=== PATIENT | female | born 1985 | race Caucasian/White ===

== ENCOUNTER 2017-08-23 16:25 | Emergency (ER) | payer OTHER, SELFPAY ==
[2017-08-23 17:01] LABS: Urine Blood 3+ (NEG); Urine Glucose NEGATIVE (NEG); Urine Protein 1+ (NEG); Urine Specific Gravity >1.030 (1.005-1.030)
[2017-08-23 17:04] LABS: Urine Bacteria 20-50 /HPF (<20); Urine Culture Reflex Order REFLEXED
[2017-08-23 18:08] LABS: Absolute Lymphocytes (CBC) 1.8 K/uL (0.7-4.9); Absolute Monocytes 0.9 K/uL (0.1-1.3); Absolute Neutrophil 7.1 K/uL (1.8-8.0); Basophils % 0.5 % (0-1.3); Eosinophils % 0.9 % (0-4.4); Hematocrit 40.2 % (36.0-45.0); MCH 29.8 pg (27.0-35.0); MCV 89.3 fL (80-100); Monocytes % 8.8 % (3.3-12.3)
[2017-08-23 18:19] LABS: Bicarbonate 26 mEq/L (21-31); Glucose Level 98 mg/dL (65-120); Lipase 20 U/L (22-51); Potassium 3.7 mEq/L (3.6-5.0); Sodium Level 136 mEq/L (135-145)
[2017-08-23 18:25] LABS: ALT/SGPT 13 IU/L (10-60); AST/SGOT 17 IU/L (10-42); Albumin 4.1 g/dL (3.2-5.5); Alkaline Phosphatase 71 IU/L (42-121); BUN Blood Urea Nitrogen 10 mg/dL (6-20); Bilirubin Direct 0.1 mg/dL (0-0.2); Bilirubin Total 0.9 mg/dL (0.3-1.2); Protein, Total 7.9 g/dL (6.0-8.3)
[2017-08-23] MEDS ORDERED: IBUPROFEN 200 MG TAB PO ONE (18:33)
[2017-08-23] MEDS ORDERED: IBUPROFEN 400 MG TAB ONE (18:34)
--- NOTE | 2017-08-23 19:57 | ER ---
Nurse's Notes [facility] Name: Selina Vaughan Age: 31 yrs Sex: Female : 1985 Arrival Date: 08/23/2017 Time: 16:28 Bed 17 Private MD: Diagnosis: Abnormal uterine and vaginal bleeding, unspecified;Urinary tract infection, site not specified Presentation: 08/23 16:31 Presenting complaint: Patient states: "I started my period this morning and it is very lk1 heavy.". Transition of care: patient was not received from another setting of care. Onset of symptoms was August 23, 2017 at 09:00. Care prior to arrival: None. 16:31 Method Of Arrival: Ambulatory lk1 16:31 Acuity: ABDIRAHMAN 4 lk1 Triage Assessment: 16:33 General: Appears in no apparent distress. Behavior is calm, cooperative, appropriate lk1 for age. Pain: Complains of pain in suprapubic area Pain currently is 10 out of 10 on a pain scale. : Reports vaginal bleeding that is heavy flow. COOPERATIVE EDUCATION COORDINATOR: 16:33 LMP 08/23/2017 lk1 Historical: - Allergies: 16:33 No Known Allergies; lk1 - PMHx: 16:33 Headaches; lk1 - PSHx: 16:33 Tubal ligation; left wrist; lk1 - Immunization history:: Adult Immunizations up to date. - Social history:: Smoking status: Patient uses tobacco products, denies chronic smoking, but will smoke occasionally. Screenin:00 Abuse screen: Denies threats or abuse. Nutritional screening: No deficits noted. em Tuberculosis screening: No symptoms or risk factors identified. Fall Risk None identified. Assessment: 17:47 General: Appears in no apparent distress. comfortable, Behavior is calm, cooperative. em Pain: Complains of pain in suprapubic area Pain currently is 8 out of 10 on a pain scale. Quality of pain is described as crampy, Pain began 1 day ago. Neuro: Level of Consciousness is awake, alert, obeys commands, Oriented to person, place, time, situation. Cardiovascular: Capillary refill < 3 seconds Patient's skin is warm and dry. Respiratory: Airway is patent Respiratory effort is even, unlabored, Respiratory pattern is regular, symmetrical. GI: Abdomen is Bowel sounds present X 4 quads. Reports nausea. : Urine is clear, Reports cramping, Denies burning with urination. : Denies burning with urination. EENT: No deficits noted. Derm: Skin is intact, Skin is pink, warm \\T\\ dry. Musculoskeletal: Range of motion: intact in all extremities. 17:55 General: The previous assessment is accurate, call light remains within reach. . ss 18:37 Reassessment: Patient appears in no apparent distress at this time. Patient and/or em family updated on plan of care and expected duration. Pain level reassessed. Patient is alert, oriented x 3, equal unlabored respirations, skin warm/dry/pink. 19:00 Reassessment: RECD REPORT FROM JUANJOSE LY. 31YO WF P/W PELVIC CRAMPING AND VAGINAL bp BLEEDING. ALL CURRENT ORDERS COMPLETED, DISPO PENDING. 20:14 Reassessment: PT D/C HOME AMBULATORY WITH FAMILY, DX WITH UTI. bp Vital Signs: 16:33 BP 118 / 84; Pulse 95; Resp 16; Temp 97.8(TE); Pulse Ox 100% on R/A; Weight 68.04 kg lk1 (R); Height 5 ft. 5 in. (165.10 cm) (R); Pain 10/10; 18:32 BP 123 / 71; Pulse 90; Resp 18; Pulse Ox 98% on R/A; Pain 8/10; em 19:00 BP 107 / 73; Pulse 88; Resp 14; Pulse Ox 99% ; bp 19:57 BP 112 / 74; Pulse 90; Resp 15; Pulse Ox 99% on R/A; mt 16:33 Body Mass Index 24.96 (68.04 kg, 165.10 cm) lk1 ED Course: 16:28 Patient arrived in ED. as 16:32 Triage completed. lk1 16:35 Arm band placed on. lk1 16:35 Arm band placed on right wrist. lk1 17:22 Leonel Beard NP is PHCP. pm1 17:22 Jefe Mosley MD is Attending Physician. pm1 17:23 Juanjose Whitlock LVN is Primary Nurse. em 17:45 Patient has correct armband on for positive identification. Bed in low position. Call em light in reach. Side rails up X2. 18:00 No provider procedures requiring assistance completed. Initial lab(s) drawn, by me, em sent to lab. Inserted saline lock: 22 gauge in left wrist, using aseptic technique. Blood collected. 19:53 Urine Culture Sent. bp 19:58 Alex Rizvi MD is Referral Physician. pm1 20:14 IV discontinued, intact, bleeding controlled, No redness/swelling at site. Pressure bp dressing applied. Administered Medications: 18:15 Drug: Ibuprofen 600 mg Route: PO; em 19:53 Follow up: Response: No adverse reaction bp 20:01 Drug: Rocephin 1 grams Route: IV; Rate: calculated rate; Site: left hand; bp 20:01 Follow up: IV Status: Completed infusion bp 20:08 Drug: morphine 4 mg Route: IVP; Site: left hand; bp 20:08 Follow up: Response: Medication administered at discharge. bp 20:08 Drug: Zofran 4 mg Route: IVP; Site: left hand; bp 20:09 Follow up: Response: Medication administered at discharge. bp Outcome: 19:56 Discharge ordered by MD. pm1 20:15 Discharged to home ambulatory, with family. bp 20:15 Condition: stable 20:15 Discharge instructions given to patient, Instructed on discharge instructions, follow up and referral plans. medication usage, Demonstrated understanding of instructions, follow-up care, medications, Prescriptions given X 1. 20:15 Patient left the ED. bp Addendum: 08/26/2017 07:48 Addendum: Culture Results: Positive urine culture. No further action required. Bacteria i w sensitive to prescribed antibiotic. Signatures: Juanjose Whitlock, HAND ETCHER HELPER HAND ETCHER HELPER Marlena Nova as Flores Flores RN RN Deanne Soriano RN RN Tiffanie Brennan RN RN lk1 Leonel Beard NP COPPER PLATE PRINTER pm1 Candy Krishnamurthy nd Brayden Alfred RN RN bp
--- NOTE | 2017-08-23 19:57 | EDPHYS ---
Physician Documentation [facility] Name: Selina Vaughan Age: 31 yrs Sex: Female : 1985 Arrival Date: 08/23/2017 Time: 16:28 Bed 17 Private MD: ED Physician Jefe Mosley HPI: 08/23 20:00 This 31 yrs old Female presents to ER via Ambulatory with complaints of pm1 Vaginal Bleeding, Pelvic Pain. 20:00 The patient presents with vaginal bleeding that is heavy. Onset: The symptoms/episode pm1 began/occurred today. Modifying factors: The symptoms are alleviated by nothing, the symptoms are aggravated by nothing. Associated signs and symptoms: Pertinent positives: cramping, Pertinent negatives: dysuria, fever, nausea. The patient has not recently seen a physician. Patient reports onset of menstrual cycle today that is heavier than normal. FOOD SERVICES COORDINATOR: 16:33 LMP 08/23/2017 lk1 Historical: - Allergies: 16:33 No Known Allergies; lk1 - PMHx: 16:33 Headaches; lk1 - PSHx: 16:33 Tubal ligation; left wrist; lk1 - Immunization history:: Adult Immunizations up to date. - Social history:: Smoking status: Patient uses tobacco products, denies chronic smoking, but will smoke occasionally. ROS: 20:00 Positive for vaginal bleeding. pm1 20:00 Constitutional: Negative for fever, chills, and weight loss, Eyes: Negative for injury, pain, redness, and discharge, ENT: Negative for injury, pain, and discharge, Neck: Negative for injury, pain, and swelling, Cardiovascular: Negative for chest pain, palpitations, and edema, Respiratory: Negative for shortness of breath, cough, wheezing, and pleuritic chest pain. 20:00 Back: Negative for injury and pain, MS/Extremity: Negative for injury and deformity, Skin: Negative for injury, rash, and discoloration, Neuro: Negative for headache, weakness, numbness, tingling, and seizure. 20:00 Abdomen/GI: Positive for abdominal pain, of the suprapubic area, Negative for nausea, vomiting, and diarrhea. Exam: 20:00 Constitutional: This is a well developed, well nourished patient who is awake, alert, pm1 and in no acute distress. Head/Face: Normocephalic, atraumatic. Eyes: Pupils equal round and reactive to light, extra-ocular motions intact. Lids and lashes normal. Conjunctiva and sclera are non-icteric and not injected. Cornea within normal limits. Periorbital areas with no swelling, redness, or edema. ENT: Nares patent. No nasal discharge, no septal abnormalities noted. Tympanic membranes are normal and external auditory canals are clear. Oropharynx with no redness, swelling, or masses, exudates, or evidence of obstruction, uvula midline. Mucous membranes moist. Neck: Trachea midline, no thyromegaly or masses palpated, and no cervical lymphadenopathy. Supple, full range of motion without nuchal rigidity, or vertebral point tenderness. No Meningismus. Chest/axilla: Normal chest wall appearance and motion. Nontender with no deformity. No lesions are appreciated. Cardiovascular: Regular rate and rhythm with a normal S1 and S2. No gallops, murmurs, or rubs. Normal PMI, no JVD. No pulse deficits. Respiratory: Lungs have equal breath sounds bilaterally, clear to auscultation and percussion. No rales, rhonchi or wheezes noted. No increased work of breathing, no retractions or nasal flaring. Back: No spinal tenderness. No costovertebral tenderness. Full range of motion. Skin: Warm, dry with normal turgor. Normal color with no rashes, no lesions, and no evidence of cellulitis. MS/ Extremity: Pulses equal, no cyanosis. Neurovascular intact. Full, normal range of motion. 20:00 Abdomen/GI: Inspection: abdomen appears normal, Bowel sounds: normal, Palpation: abdomen is soft and non-tender, in all quadrants, mass, is not appreciated, rebound tenderness, is not appreciated. 20:00 Neuro: Orientation: is normal, Motor: is normal, moves all fours. Vital Signs: 16:33 BP 118 / 84; Pulse 95; Resp 16; Temp 97.8(TE); Pulse Ox 100% on R/A; Weight 68.04 kg lk1 (R); Height 5 ft. 5 in. (165.10 cm) (R); Pain 10/10; 18:32 BP 123 / 71; Pulse 90; Resp 18; Pulse Ox 98% on R/A; Pain 8/10; em 19:00 BP 107 / 73; Pulse 88; Resp 14; Pulse Ox 99% ; bp 19:57 BP 112 / 74; Pulse 90; Resp 15; Pulse Ox 99% on R/A; mt 16:33 Body Mass Index 24.96 (68.04 kg, 165.10 cm) lk1 MDM: 17:22 Patient medically screened. pm1 19:55 Data reviewed: vital signs. Data interpreted: Pulse oximetry: on room air is 99 %. pm1 Interpretation: normal. Counseling: I had a detailed discussion with the patient and/or guardian regarding: the historical points, exam findings, and any diagnostic results supporting the discharge/admit diagnosis, lab results, the need for outpatient follow up, an OB/Gyne specialist, to return to the emergency department if symptoms worsen or persist or if there are any questions or concerns that arise at home. 08/23 16:52 Order name: Urine Dipstick--Ancillary (enter results); Complete Time: 17:22 bd 08/23 16:52 Order name: Urine --Ancillary (enter results); Complete Time: 17:22 bd 08/23 16:52 Order name: Urine Microscopic Only; Complete Time: 17:22 bd 08/23 17:06 Order name: Urine Culture EDAR 08/23 17:35 Order name: Basic Metabolic Panel; Complete Time: 18:26 pm1 08/23 17:35 Order name: CBC with Diff; Complete Time: 18:26 pm1 08/23 17:35 Order name: Hepatic Function; Complete Time: 18:26 pm1 08/23 17:35 Order name: Lipase; Complete Time: 18:26 pm1 08/23 17:35 Order name: IV Saline Lock; Complete Time: 18:30 pm1 08/23 17:35 Order name: Labs collected and sent; Complete Time: 18:30 pm1 Administered Medications: 18:15 Drug: Ibuprofen 600 mg Route: PO; em 19:53 Follow up: Response: No adverse reaction bp 20:01 Drug: Rocephin 1 grams Route: IV; Rate: calculated rate; Site: left hand; bp 20:01 Follow up: IV Status: Completed infusion bp 20:08 Drug: morphine 4 mg Route: IVP; Site: left hand; bp 20:08 Follow up: Response: Medication administered at discharge. bp 20:08 Drug: Zofran 4 mg Route: IVP; Site: left hand; bp 20:09 Follow up: Response: Medication administered at discharge. bp Disposition: 08/23/17 19:56 Discharged to Home. Impression: Abnormal uterine and vaginal bleeding, unspecified, Urinary tract infection, site not specified. - Condition is Stable. - Discharge Instructions: Abnormal Uterine Bleeding, Urinary Tract Infection. - Prescriptions for Bactrim DS 800- 160 mg Oral Tablet - take 1 tablet by ORAL route every 12 hours for 10 days; 20 tablet. - Medication Reconciliation Form, Thank You Letter, Antibiotic Education, Work release form form. - Follow up: Emergency Department; When: As needed; Reason: Worsening of condition. Follow up: Private Physician; When: 2 - 3 days; Reason: Recheck today's complaints, Continuance of care, Re-evaluation by your physician. Follow up: Alex Rizvi MD; When: 2 - 3 days; Reason: Recheck today's complaints, Continuance of care, Re-evaluation by your physician. - Problem is new. - Symptoms have improved. - Notes: Take ibuprofen as need for pain Addendum: 08/28/2017 03:03 Co-signature as Attending Physician, Jefe Mosley MD I agree with the assessment and t w4 plan of care. Signatures: Dispatcher [employer] Juanjose Liao, WATER SYSTEM OPERATOR WATER SYSTEM OPERATOR Tiffanie Laird, RN RN lk1 Leonel Beard, WHEEL BRAIDER WHEEL BRAIDER pm1 Brayden Alfred, CITLALLI RN Jefe Cooley MD MD tw4
[2017-08-23] MEDS ORDERED: CEFTRIAXONE/SWI 1gm 1 GM/10 ML SYR ONE (20:16)
[2017-08-23] MEDS ORDERED: MORPHINE 4 MG/ML SYR ONE (20:23)
[2017-08-23] MEDS ORDERED: ONDANSETRON 4 MG/2 ML VIAL ONE (20:23)
== END 2017-08-23 20:15 | disposition home or self-care (01) ==
LOC: ER 16:25
DX: N39.0 Urinary tract infection, site not specified (principal); Z72.0 Tobacco use
CPT/HCPCS: 36415; 80048; 80076; 81003; 81015; 81025; 83690; 85025; 87077; 87086; 87088; 87186; 96374; 96375; 99284; J0696; J2405

== ENCOUNTER 2024-08-12 01:36 | Emergency (ER) | payer SELFPAY ==
[2024-08-12] MEDS ORDERED: NA CHLORIDE 0.9% 1,000 ML ONE ×2 (02:06→04:13)
[2024-08-12] MEDS ORDERED: METOCLOPRAMIDE 10 MG/2mL INJ ONE (02:06)
[2024-08-12] MEDS ORDERED: DIPHENHYDRAMINE 50 MG/ML VIAL ONE (02:06)
[2024-08-12] MEDS ORDERED: DICYCLOMINE HCL 20 MG/2 ML AMP IM ONE (02:06)
[2024-08-12] MEDS ORDERED: FAMOTIDINE 20 MG/2 ML VIAL IV ONE (02:06)
[2024-08-12 03:14] LABS: Absolute Lymphocytes (CBC) 0.5 K/uL (0.7-4.9); Absolute Monocytes 1.1 K/uL (0.1-1.3); Absolute Neutrophil 23.9 K/uL (1.8-8.0); Basophils % 0.2 % (0-1.3); Eosinophils % 0.1 % (0-4.4); Hematocrit 42.8 % (36.0-45.0); Hemoglobin 14.5 g/dL (12.0-15.0); MCH 29.8 pg (27.0-35.0); MCHC 33.8 g/dL (32.0-36.0); MCV 88.1 fL (80-100); MPV 8.5 fL (7.6-11.3); Monocytes % 4.3 % (3.3-12.3); Neutrophils % 93.4 % (41.7-73.7); Nucleated Red Blood Cells % 0.1 % (0-0); Platelets 351 thou/uL (152-406); RBC Red Blood Cell Count 4.86 M/uL (3.86-4.86); Red Cell Distribution Width 14.8 % (12.1-15.2)
[2024-08-12 03:24] LABS: Albumin 3.7 g/dL (3.4-5.0); Albumin/Globulin Ratio 0.7 (1.1-1.8); Bilirubin Total 1.3 mg/dL (0.2-1.0); Globulin 5.3 g/dL (2.3-3.5)
[2024-08-12 03:31] LABS: Influenza A Ag Negative; Influenza B Ag Negative; SARS-CoV-2 Antigen Rapid Res Negative (Negative)
[2024-08-12 05:16] LABS: Blood Morphology Comment NOT SEEN (NOT SEEN); Platelet Estimate ADEQ; White Blood Cell Scan OK (OK)
--- NOTE | 2024-08-12 07:39 | RAD REPORT ---
EXAMINATION: CT ABDOMEN AND PELVIS WITH CONTRAST CLINICAL INDICATION: Female, 38 years old.diarrhea;Nausea / vomiting;Abd pain TECHNIQUE: CT abdomen and pelvis was performed, after the administration of IV contrast, as per [facility] protocol. Axial, sagittal and coronal reconstructions were obtained. One or more of the following dose reduction techniques were used: Automated exposure control, adjustment of the mA and/o r kV according to patient size, and/or iterative reconstruction. Unless otherwise specified, incidental findings do not require dedicated imaging follow-up. [id number]. COMPARISON: No prior exam. FINDINGS: LOWER CHEST: No acute process identified.Normal heart size. UPPER GI: No significant focal abnormality. LIVER: No significant focal abnormality. GALLBLADDER/BILE DUCTS: No biliary ductal dilatation. PANCREAS: No mass, ductal dilation, or dalton-pancreatic fluid. SPLEEN: Unremarkable. ADRENALS: No adrenal masses. KIDNEYS AND URETERS: No hydronephrosis.No suspicious renal mass.No renal calculi identified. ABDOMINAL AORTA AND OTHER VESSELS: Normal caliber aorta and IVC. PERITONEUM: No abnormal free fluid. No free air. LYMPH NODES: No pathologic lymphadenopathy. ABDOMINAL WALL: Unremarkable SMALL BOWEL/COLON: Small bowel has normal course and caliber. No colonic wall thickening or pericolon ic inflammatory changes.Normal appendix. Nonspecific small bowel fluid. URINARY BLADDER: Underdistended but grossly unremarkable. REPRODUCTIVE ORGANS: No pathologic process. MUSCULOSKELETAL: No acute or suspicious osseous abnormality. ADDITIONAL FINDINGS: None. IMPRESSION: No acute findings in the abdomen or pelvis. Nonspecific small bowel fluid could reflect a mild enteri tis. Normal appendix. Electronically signed by: Delfin Escobar MD 08/12/2024 07:34 AM T Due to temporary technical issues with the [employer] reporting system, reports are being little d by the in-house radiologist without review as a courtesy to ensure prompt reporting the interpreting radiologist is fully responsible for the content of the report. Transcribed Date/Time: 08/12/2024 7:38 AM
--- NOTE | 2024-08-12 07:41 | ER ---
Nurse's Notes [facility] Name: Selina Vaughan Age: 38 yrs Sex: Female : 1985 Arrival Date: 08/12/2024 Time: 01:36 Bed 2 Private MD: Diagnosis: Nausea with vomiting, unspecified;Diarrhea, unspecified Presentation: 08/12 01:59 Chief complaint: Patient states: VOMTING AND DIARRHEA WITH UPPER AB PAIN. Coronavirus br2 screen: Client denies travel out of the [place] in the last 14 days. Ebola Screen: Patient denies exposure to infectious person. Initial Sepsis Screen: Does the patient meet any 2 criteria? No. Patient's initial sepsis screen is negative. Does the patient have a suspected source of infection? No. Patient's initial sepsis screen is negative. Risk Assessment: Do you want to hurt yourself or someone else? Patient reports no desire to harm self or others. Onset of symptoms was August 11, 2024 at 20:00. 01:59 Method Of Arrival: Ambulatory br2 01:59 Acuity: ABDIRAHMAN 3 br2 Triage Assessment: 02:01 General: Appears uncomfortable, Behavior is calm, cooperative. Pain: Complains of pain br2 in right upper quadrant and left upper quadrant Pain currently is 10 out of 10 on a pain scale. GI: Reports upper abdominal pain, diarrhea, nausea, vomiting. Historical: - Allergies: 02:01 PENICILLINS; br2 - Home Meds: 02:01 None [Active]; br2 - Immunization history:: Adult Immunizations up to date. - Infectious Disease History:: Denies. - Social history:: Smoking status: Patient/guardian denies using tobacco, Patient uses alcohol, occasionally. Screenin:06 [facility] ED Fall Risk Assessment (Adult) History of falling in the last 3 months, vc1 including since admission No falls in past 3 months (0 pts) Confusion or Disorientation No (0 pts) Intoxicated or Sedated No (0 pts) Impaired Gait No (0 pts) Mobility Assist Device Used No (0 pt) Altered Elimination No (0 pt) Score/Fall Risk Level 0 - 2 = Low Risk Oriented to surroundings, Maintained a safe environment, Educated pt \T\ family on fall prevention, incl call for assistance when getting out of bed, Hourly rounding (assess needs \T\ fall precautionary measures) done. Abuse screen: Denies threats or abuse. Nutritional screening: No deficits noted. Tuberculosis screening: No symptoms or risk factors identified. Assessment: 02:00 General: Appears uncomfortable, Behavior is calm, cooperative. Pain: Complains of pain ha1 in abdomen diffusely Pain currently is 9 out of 10 on a pain scale. Quality of pain is described as crampy, Pain began 1 day ago. Neuro: Level of Consciousness is awake, alert, obeys commands, Oriented to person, place, time, situation. Cardiovascular: Capillary refill < 3 seconds Patient's skin is warm and dry. Respiratory: Airway is patent Respiratory effort is even, unlabored, Respiratory pattern is regular, symmetrical. GI: Abdomen is round non-distended, Reports lower abdominal pain, upper abdominal pain, diarrhea, nausea, vomiting. : No signs and/or symptoms were reported regarding the genitourinary system. Derm: Skin is pale. Musculoskeletal: Circulation, motion, and sensation intact. 02:52 Reassessment: Patient appears in no apparent distress at this time. No changes from vc1 previously documented assessment. Patient and/or family updated on plan of care and expected duration. Pain level reassessed. 03:33 Reassessment: Patient and/or family updated on plan of care and expected duration. Pain ha1 level reassessed. Patient is alert, oriented x 3, equal unlabored respirations, skin warm/dry/pink. Patient denies pain at this time. Patient states feeling better. Patient states symptoms have improved. 04:27 Reassessment: Patient appears in no apparent distress at this time. No changes from vc1 previously documented assessment. Patient and/or family updated on plan of care and expected duration. Pain level reassessed. Patient is alert, oriented x 3, equal unlabored respirations, skin warm/dry/pink. 06:07 Reassessment: Patient appears in no apparent distress at this time. No changes from vc1 previously documented assessment. Patient and/or family updated on plan of care and expected duration. Pain level reassessed. Patient is alert, oriented x 3, equal unlabored respirations, skin warm/dry/pink. Vital Signs: 01:59 BP 109 / 87; Pulse 132; Resp 18; Temp 97.9; Pulse Ox 98% ; Weight 68.04 kg; Height 5 br2 ft. 5 in. ; Pain 10/10; 02:45 BP 119 / 82; Pulse 107; Resp 18; Pulse Ox 99% ; vc1 03:34 BP 122 / 73; Pulse 110; Resp 19 S; Pulse Ox 99% on R/A; ha1 04:28 BP 118 / 84; Pulse 105; Resp 18; Pulse Ox 98% ; vc1 06:00 BP 127 / 68; Pulse 104; Resp 18; Pulse Ox 96% ; vc1 07:59 BP 108 / 66; Pulse 91; Resp 16; Pulse Ox 97% ; bp 01:59 Body Mass Index 24.96 (68.04 kg, 165.1 cm) br2 01:59 Pain Scale: Adult br2 ED Course: 01:38 Patient arrived in ED. jj6 01:40 Asif Rai PA is PHCP. cp 01:41 Asif Xiong MD is Attending Physician. cp 01:59 Summer Truong, CITLALLI is Primary Nurse. br2 02:01 Triage completed. br2 02:01 Arm band placed on. br2 02:05 Patient has correct armband on for positive identification. Bed in low position. Call vc1 light in reach. Pulse ox on. NIBP on. 02:13 Inserted saline lock: 20 gauge in left antecubital area, using aseptic technique. Blood ha1 collected. Flushed with 10 mL NS. 04:15 CT Abd/Pelvis - IV Contrast Only In Process Unspecified. EDMS 07:04 Attending Physician role handed off by Asif Xiong MD sp3 07:04 Buffy Andujar MD is Attending Physician. sp3 07:13 Buffy Andujar MD is Attending Physician. sp3 08:01 No provider procedures requiring assistance completed. IV discontinued, intact, bp bleeding controlled, No redness/swelling at site. Pressure dressing applied. Administered Medications: 02:46 Drug: metoCLOPramide IVP 10 mg IVP once; over 1 to 2 minutes Route: IVP; Site: left vc1 antecubital; 03:20 Follow up: Response: No adverse reaction; Nausea is decreased ha1 02:46 Drug: diphenhydrAMINE IVP 25 mg IVP once Route: IVP; Site: left antecubital; vc1 03:20 Follow up: Response: No adverse reaction; Marked relief of symptoms ha1 02:47 Drug: Famotidine IVP 20 mg IVP once; dilute with 10 mL 0.9% NaCl; give over 2 minutes vc1 Route: IVP; Site: left antecubital; 03:20 Follow up: Response: No adverse reaction; Marked relief of symptoms; Nausea is decreasedha1 02:47 Drug: NS 0.9% IV 1000 ml IV at 1 bolus Per protocol; to be given as a bolus over 60 vc1 minutes Route: IV; Rate: 1 bolus; Site: left antecubital; 07:44 Follow up: IV Status: Completed infusion bp 02:47 Drug: Dicyclomine IM 20 mg IM once Route: IM; Site: left ventrogluteal; vc1 03:20 Follow up: Response: No adverse reaction; Marked relief of symptoms ha1 04:28 Drug: NS 0.9% IV 1000 ml IV at 1000 ml once; to be given as a bolus over 60 minutes ha1 Route: IV; Rate: 1000 ml; Site: left antecubital; 07:44 Follow up: IV Status: Completed infusion bp Medication: 03:06 VIS not applicable for this client. vc1 Outcome: 07:41 Discharge ordered by MD. grimm 08:01 Discharged to home ambulatory, with family, bp 08:01 Condition: stable 08:01 Discharge instructions given to patient, Instructed on discharge instructions, follow up and referral plans. medication usage, Demonstrated understanding of instructions, follow-up care, medications, Prescriptions given X 4, 08:02 Patient left the ED. bp Signatures: Dispatcher [employer] EDMS Asif Rai PA PA cp Peltier, Brian, RN RN bp Buffy Andujar MD MD sp3 Deandra [id number] Yahaira Fishman RN RN vc1 Alexandra Moran RN RN ha1 Summer Truong RN RN br2 Corrections: (The following items were deleted from the chart) 08:01 07:59 BP 108 / 66; Pulse 101bpm; Resp 16bpm; Pulse Ox 97%; bp bp
--- NOTE | 2024-08-12 07:41 | EDPHYS ---
Physician Documentation [facility] Name: Selina Vaughan Age: 38 yrs Sex: Female : 1985 Arrival Date: 08/12/2024 Time: 01:36 Bed 2 Private MD: ED Physician Buffy Andujar HPI: 08/12 01:56 This 38 yrs old Female presents to ER via Unassigned with complaints of cp Nausea/Vomiting/Diarrhea. 01:56 The patient presents to the emergency department with nausea, that is moderate, cp vomiting, that is continuous, diarrhea, that is continuous, abdominal pain, of the right upper quadrant and left upper quadrant. Onset: The symptoms/episode began/occurred yesterday, about 1999. Possible causes: unknown. Associated signs and symptoms: Pertinent positives: abdominal pain, Pertinent negatives: constipation, fever, GI bleeding. Severity of symptoms: in the emergency department the symptoms are unchanged despite home interventions. Historical: - Allergies: 02:01 PENICILLINS; br2 - Home Meds: 02:01 None [Active]; br2 - Immunization history:: Adult Immunizations up to date. - Infectious Disease History:: Denies. - Social history:: Smoking status: Patient/guardian denies using tobacco, Patient uses alcohol, occasionally. ROS: 01:58 ENT: Negative for drainage from ear(s), ear pain, sore throat, difficulty swallowing, cp difficulty handling secretions, 01:58 Respiratory: Negative for cough, shortness of breath, wheezing, 01:58 Abdomen/GI: Positive for abdominal pain, nausea, vomiting, and diarrhea, Negative for hematemesis, black/tarry stool, rectal bleeding, 01:58 Back: Negative for pain at rest, pain with movement, 01:58 : Negative for urinary symptoms, 01:58 Neuro: Negative for altered mental status, headache, Exam: 02:00 Head/Face: Normocephalic, atraumatic. cp 02:00 Constitutional: The patient appears in no acute distress, alert, awake, non-toxic, well developed, well nourished, uncomfortable, 02:00 Eyes: Periorbital structures: appear normal, Conjunctiva: normal, no exudate, no injection, Sclera: no appreciated abnormality, Lids and lashes: appear normal, bilaterally, 02:00 ENT: External ear(s): are unremarkable, Nose: is normal, Mouth: Lips: dry, Oral mucosa: moist, Posterior pharynx: Airway: no evidence of obstruction, patent, 02:00 Neck: ROM/movement: is normal, is supple, without pain, no range of motions limitations, 02:00 Chest/axilla: Inspection: normal, 02:00 Cardiovascular: Rate: tachycardic, Rhythm: regular, cp 02:00 Respiratory: the patient does not display signs of respiratory distress, Respirations: cp normal, no use of accessory muscles, no retractions, labored breathing, is not present, Breath sounds: are clear throughout, no decreased breath sounds, no stridor, no wheezing, 02:00 Abdomen/GI: Inspection: abdomen appears normal, Bowel sounds: active, all quadrants, Palpation: soft, in all quadrants, moderate abdominal tenderness, in the epigastric area, right upper quadrant and left upper quadrant, rebound tenderness, is not appreciated, involuntary guarding, is not appreciated, 02:00 Back: CVA tenderness, is absent, 02:00 Neuro: Orientation: to person, place \T\ time. Mentation: is normal, Motor: moves all fours, strength is normal, Gait: is steady, at a normal pace, Vital Signs: 01:59 BP 109 / 87; Pulse 132; Resp 18; Temp 97.9; Pulse Ox 98% ; Weight 68.04 kg; Height 5 br2 ft. 5 in. ; Pain 10/10; 02:45 BP 119 / 82; Pulse 107; Resp 18; Pulse Ox 99% ; vc1 03:34 BP 122 / 73; Pulse 110; Resp 19 S; Pulse Ox 99% on R/A; ha1 04:28 BP 118 / 84; Pulse 105; Resp 18; Pulse Ox 98% ; vc1 06:00 BP 127 / 68; Pulse 104; Resp 18; Pulse Ox 96% ; vc1 07:59 BP 108 / 66; Pulse 91; Resp 16; Pulse Ox 97% ; bp 01:59 Body Mass Index 24.96 (68.04 kg, 165.1 cm) br2 01:59 Pain Scale: Adult br2 MDM: 02:00 Differential diagnosis: gastritis, cholecystitis, pancreatitis, appendicitis, viral cp gastroenteritis, gastroenteritis. 02:05 Medical Screening Exam initiated pascual 07:40 Data reviewed: vital signs, lab test result(s), radiologic studies. ED course: 25,[address] demonstrates no significant abnormalities. Enteritis noted. We will discharge patient on antibiotics and follow-up to PCP.. 08/12 01:58 Order name: CBC with Diff; Complete Time: 07:17 cp 08/12 03:41 Interpretation: Normal except: WBC 25.60; ROSARIO% 93.4; LYM% 2.0; NEUT A 23.9; LYMA 0.5. cp 08/12 01:58 Order name: CMP; Complete Time: 03:41 cp 08/12 03:42 Interpretation: Normal except: NA 134; GLUC 145; GFR 84; BILIT 1.3; TP 9.0; GLOB 5.3; cp A/G 0.7. 08/12 01:58 Order name: Lipase; Complete Time: 03:41 cp 08/12 01:58 Order name: COVID-19 Ag + Flu A+B Ag; Complete Time: 03:41 cp 08/12 05:17 Order name: CBC Smear Scan; Complete Time: 07:17 EDMS 08/12 03:42 Order name: CT Abd/Pelvis - IV Contrast Only; Complete Time: 07:39 cp 08/12 01:58 Order name: IV Saline Lock; Complete Time: 02:13 cp 08/12 01:58 Order name: Labs collected and sent; Complete Time: 02:47 cp Administered Medications: 02:46 Drug: metoCLOPramide IVP 10 mg IVP once; over 1 to 2 minutes Route: IVP; Site: left vc1 antecubital; 03:20 Follow up: Response: No adverse reaction; Nausea is decreased ha1 02:46 Drug: diphenhydrAMINE IVP 25 mg IVP once Route: IVP; Site: left antecubital; vc1 03:20 Follow up: Response: No adverse reaction; Marked relief of symptoms ha1 02:47 Drug: Famotidine IVP 20 mg IVP once; dilute with 10 mL 0.9% NaCl; give over 2 minutes vc1 Route: IVP; Site: left antecubital; 03:20 Follow up: Response: No adverse reaction; Marked relief of symptoms; Nausea is decreasedha1 02:47 Drug: NS 0.9% IV 1000 ml IV at 1 bolus Per protocol; to be given as a bolus over 60 vc1 minutes Route: IV; Rate: 1 bolus; Site: left antecubital; 07:44 Follow up: IV Status: Completed infusion bp 02:47 Drug: Dicyclomine IM 20 mg IM once Route: IM; Site: left ventrogluteal; vc1 03:20 Follow up: Response: No adverse reaction; Marked relief of symptoms ha1 04:28 Drug: NS 0.9% IV 1000 ml IV at 1000 ml once; to be given as a bolus over 60 minutes ha1 Route: IV; Rate: 1000 ml; Site: left antecubital; 07:44 Follow up: IV Status: Completed infusion bp Disposition: 07:40 I agree with the assessment and plan of care. I reviewed the patient's care provided by sp3 Advanced Practice Provider \T\ agree w/ the diagnosis \T\ care plan. I personally saw the pt \T\ performed a substantive portion of the visit, incldng all aspects of the (History/Exam/Medical Decision Making). Disposition Summary: 08/12/24 07:41 Discharge Ordered Notes: Location: Home sp3 Problem: new sp3 Symptoms: have improved sp3 Condition: Stable sp3 Diagnosis - Nausea with vomiting, unspecified sp3 - Diarrhea, unspecified sp3 Followup: cp - With: Private Physician - When: 2 - 3 days - Reason: Worsening of condition Discharge Instructions: - Discharge Summary Sheet cp - Food Choices to Help Relieve Diarrhea, Adult cp - Diarrhea, Adult cp - Nausea and Vomiting, Adult cp Forms: - Medication Reconciliation Form sp3 - Antibiotic Education sp3 - Prescription Opioid Use sp3 - Patient Portal Instructions sp3 - Leadership Thank You Letter sp3 Prescriptions: - Pepcid 20 mg Oral Tablet - take 1 tablet ORAL route every 12 hours for 10 days; 20 tablet; Refills: 0, cp Product Selection Permitted - ondansetron 8 mg Oral Tablet,disintegrating - take 1 tablet ORAL route every 12 hours; 15 tablet; Refills: 0, Product cp Selection Permitted - Cipro 500 mg Oral tablet - take 1 tablet ORAL route every 12 hours for 7 days; 14 tablet; Refills: 0, sp3 Product Selection Permitted - Flagyl 500 mg Oral tablet - take 1 tablet ORAL route every 8 hours for 7 days; 21 tablet; Refills: 0, sp3 Product Selection Permitted Signatures: Dispatcher [employer] EDAsif Sevilla MD MD cha Page, Corey, PA PA lorena Andujar, Setul, MD MD sp3 Yahaira Fishman, RN RN vc1 Alexandra Moran, RN RN ha1 Summer Truong, RN RN br2 Brayden Alfred RN bp
[2024-08-12 08:19] VITALS: TEMP 97.9
[2024-08-12 08:34] VITALS: BP 108/66; O2SAT 97
== END 2024-08-12 08:02 | disposition home or self-care (01) ==
LOC: ER 01:36
DX: R11.2 Nausea with vomiting, unspecified (principal); R19.7 Diarrhea, unspecified; Z11.52 Encounter for screening for COVID-19
CPT/HCPCS: 36415; 74177; 80053; 83690; 85025; 87428; 96361; 96372; 96374; 96375; 99284; J0500; J1200; J2765; J7030; Q9967

== ENCOUNTER 2024-08-16 11:49 | Emergency (ER) | payer SELFPAY ==
[2024-08-16] MEDS ORDERED: ONDANSETRON 4 MG/2 ML VIAL ONE (13:45)
[2024-08-16] MEDS ORDERED: NA CHLORIDE 0.9% 500 ML ONE (13:45)
[2024-08-16 13:49] LABS: Absolute Eosinophils 0.1 K/uL (0-0.5); Absolute Lymphocytes (CBC) 2.3 K/uL (0.7-4.9); Absolute Monocytes 0.9 K/uL (0.1-1.3); Basophils % 0.6 % (0-1.3); Eosinophils % 1.3 % (0-4.4); Hematocrit 36.2 % (36.0-45.0); Hemoglobin 12.1 g/dL (12.0-15.0); Lymphocytes % 27.3 % (15.3-44.8); MCH 29.5 pg (27.0-35.0); MCHC 33.6 g/dL (32.0-36.0); MCV 87.7 fL (80-100); MPV 7.7 fL (7.6-11.3); Monocytes % 11.2 % (3.3-12.3); Neutrophils % 59.6 % (41.7-73.7); Nucleated Red Blood Cells % 0.1 % (0-0); Platelets 329 thou/uL (152-406); RBC Red Blood Cell Count 4.12 M/uL (3.86-4.86); Red Cell Distribution Width 13.9 % (12.1-15.2)
--- NOTE | 2024-08-16 13:57 | RAD REPORT ---
Procedure: Chest Single View HISTORY: Cough COMPARISON: none FINDINGS: The lungs appear clear of acute infiltrate. No significant pleural effusion noted. The heart is normal size. IMPRESSION: No acute abnormality is displayed.
--- NOTE | 2024-08-16 14:14 | ER ---
Nurse's Notes [facility] Name: Selina Vaughan Age: 38 yrs Sex: Female : 1985 Arrival Date: 08/16/2024 Time: 11:49 Bed 23 Private MD: Diagnosis: Inhalational Injury;Hypokalemia Presentation: 08/16 11:57 Chief complaint: Patient states: Inhaled Isopar E fluid at 8 am. EMERSON, nausea, burning ll1 throat, and alcohol smell in throat started after inhaling. MSDS sheet at EMS states: FELECIA: VSS 20 G L wrist. Coronavirus screen: Client denies travel out of the [place] in the last 14 days. At this time, the client does not indicate any symptoms associated with coronavirus-19. Ebola Screen: Patient denies travel to an Ebola-affected area in the 21 days before illness onset. Initial Sepsis Screen: Does the patient meet any 2 criteria? No. Patient's initial sepsis screen is negative. Does the patient have a suspected source of infection? No. Patient's initial sepsis screen is negative. Risk Assessment: Do you want to hurt yourself or someone else? Patient reports no desire to harm self or others. Onset of symptoms was August 16, 2024. 11:57 Method Of Arrival: EMS: [facility] 1 11:57 Acuity: ABDIRAHMAN 3 ll1 Triage Assessment: 11:59 General: Appears uncomfortable, Behavior is calm, cooperative, appropriate for age. ll1 Pain: Complains of pain in chest Pain currently is 2 out of 10 on a pain scale. Quality of pain is described as aching, dull. EENT: Reports pain when swallowing. Neuro: Reports headache. Cardiovascular: Reports chest pain. GI: Reports nausea. 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 - Infectious Disease History:: Denies. - Social history:: Smoking status: Patient denies any tobacco usage or history of. Screenin:00 [facility] ED Fall Risk Assessment (Adult) History of falling in the last 3 months, me1 including since admission No falls in past 3 months (0 pts) Confusion or Disorientation No (0 pts) Intoxicated or Sedated No (0 pts) Impaired Gait No (0 pts) Mobility Assist Device Used No (0 pt) Altered Elimination No (0 pt) Score/Fall Risk Level 0 - 2 = Low Risk Maintained a safe environment, Provided non-skid footwear, Hourly rounding (assess needs \T\ fall precautionary measures) done. Abuse screen: Denies threats or abuse. Nutritional screening: No deficits noted. Tuberculosis screening: No symptoms or risk factors identified. Assessment: 12:00 General: Appears comfortable, well groomed, well developed, well nourished, Behavior is me1 calm, cooperative, appropriate for age. Pain: Complains of pain in chest Pain does not radiate. Pain currently is 2 out of 10 on a pain scale. Quality of pain is described as aching, dull, Pain began suddenly, Is continuous. Neuro: Level of Consciousness is awake, alert, obeys commands, Oriented to person, place, time, situation, Appropriate for age. Cardiovascular: Reports chest pain, Patient's skin is warm and dry. Respiratory: Respiratory effort is even, unlabored, Respiratory pattern is regular, symmetrical. GI: No signs and/or symptoms were reported involving the gastrointestinal system. : No signs and/or symptoms were reported regarding the genitourinary system. EENT: No signs and/or symptoms were reported regarding the EENT system. Derm: Skin is intact, is healthy with good turgor, Skin is pink, warm \T\ dry. Musculoskeletal: No signs and/or symptoms reported regarding the musculoskeletal system. Vital Signs: 11:57 BP 114 / 64; Pulse 70; Resp 16; Temp 98; Pulse Ox 98% ; Weight 68.04 kg; Height 5 ft. 5 ll1 in. ; Pain 2/10; 12:00 BP 120 / 76; Pulse 70; Resp 18; Pulse Ox 95% ; me1 13:00 BP 119 / 75; Pulse 68; Resp 16; Pulse Ox 99% ; me1 14:40 BP 111 / 75; Pulse 66; Resp 16; Temp 98.5; Pulse Ox 100% ; me1 11:57 Body Mass Index 24.96 (68.04 kg, 165.1 cm) ll1 11:57 Pain Scale: Adult ll1 ED Course: 11:56 Patient arrived in ED. ll1 11:56 Arm band placed on Patient placed in an exam room, on a stretcher. ll1 11:57 Misha Delgado MD is Attending Physician. ec2 11:59 Triage completed. ll1 12:00 Patient has correct armband on for positive identification. Bed in low position. Call me1 light in reach. Side rails up X2. Provided Education on: POC. Verbalized understanding. Client placed on continuous cardiac and pulse oximetry monitoring. NIBP monitoring applied. Pulse ox on. NIBP on. 12:00 No provider procedures requiring assistance completed. me1 12:04 Maintain EMS IV. Gauge \T\ site: 20 G L wrist. ll1 12:07 Sabine Martin, CITLALLI is Primary Nurse. me1 13:36 CXR XRAY In Process Unspecified. EDMS 13:43 CBC with Diff Sent. me1 13:43 BMP Sent. me1 14:44 IV discontinued, intact, bleeding controlled, No redness/swelling at site. Pressure me1 dressing applied. Administered Medications: 13:48 Drug: Ondansetron IVP 4 mg IVP once; over 2 minutes Route: IVP; Site: left wrist; me1 14:17 Follow up: Response: No adverse reaction; Nausea is decreased me1 13:48 Drug: NS 0.9% IV 500 ml 500 ml IV at 1 bolus once; to be given as a bolus over 30 me1 minutes Volume: 500 ml; Route: IV; Rate: 1 bolus; Site: left wrist; 14:39 Follow up: Response: No adverse reaction; IV Status: Completed infusion; IV Intake: me1 500ml 14:39 Drug: Potassium Chloride PO 40 mEq PO once Route: PO; me1 14:39 Follow up: Response: No adverse reaction me1 Medication: 12:00 VIS not applicable for this client. me1 Intake: 14:39 IV: 500ml; Total: 500ml. me1 Outcome: 14:14 Discharge ordered by . ec2 14:44 Discharged to home ambulatory, with friend, me1 14:44 Condition: stable 14:44 Discharge instructions given to patient, Instructed on discharge instructions, follow up and referral plans. medication usage, Demonstrated understanding of instructions, follow-up care, medications, Prescriptions given X 1, 14:46 Patient left the ED. me1 Signatures: Dispatcher [employer] EDPrimitivo Corbett RN RN ll1 Sabine Martin RN RN me1 Misha Delgado MD MD ec2 Corrections: (The following items were deleted from the chart) 14:18 11:57 Chief complaint: Patient states: Inhaled Isopar E fluid at 8 am. EMERSON, nausea, me1 burning throat, and alcohol smell in throat started after inhaling. MSDS sheet at EMS states: FELECIA: VSS 20 G L wrist ll1
--- NOTE | 2024-08-16 14:14 | EDPHYS ---
Physician Documentation [facility] Name: Selina Vaughan Age: 38 yrs Sex: Female : 1985 Arrival Date: 08/16/2024 Time: 11:49 Bed 23 Private MD: ED Physician Misha Delgado HPI: 08/16 13:19 This 38 yrs old Female presents to ER via EMS with complaints of Chemical ec2 Inhalation. 13:19 Patient arrives today due to concern for chemical inhalation. Reports she was exposed ec2 to an irritant, reports that she is having some lightheadedness and dizziness as well as some occasional cough and nausea.. 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 - Infectious Disease History:: Denies. - Social history:: Smoking status: Patient denies any tobacco usage or history of. ROS: 13:19 Constitutional: as per hpi ec2 Exam: 13:19 Constitutional: GEN: NAD Head: atraumatic Eyes: EOMI Ears: External ears are ec2 normal. CV: regular rate LUNGS: no respiratory distress, no wheezes or rales or rhonchi ABD: non-distended SKIN: no evidence of rashes MSK: no evidence of trauma Vital Signs: 11:57 BP 114 / 64; Pulse 70; Resp 16; Temp 98; Pulse Ox 98% ; Weight 68.04 kg; Height 5 ft. 5 ll1 in. ; Pain 2/10; 12:00 BP 120 / 76; Pulse 70; Resp 18; Pulse Ox 95% ; me1 13:00 BP 119 / 75; Pulse 68; Resp 16; Pulse Ox 99% ; me1 14:40 BP 111 / 75; Pulse 66; Resp 16; Temp 98.5; Pulse Ox 100% ; me1 11:57 Body Mass Index 24.96 (68.04 kg, 165.1 cm) ll1 11:57 Pain Scale: Adult ll1 MDM: 13:12 Medical Screening Exam initiated ec2 13:19 Data reviewed: vital signs, nurses notes. ED course: Patient arrives today for ec2 evaluation of possible chemical exposure per examination is well-appearing nontoxic individuals otherwise in no acute distress. Will obtain basic lab work, chest x-ray and treat the patient's dizziness and nausea with crystalloid and antiemetic.. 14:14 ED course: Lab work is unrevealing, slight hypokalemia noted, will supplement potassium ec2 and discharged home and have her follow-up with primary care doctor. Return precautions given.. 08/16 13:18 Order name: CBC with Diff; Complete Time: 14:14 ec2 08/16 13:18 Order name: BMP; Complete Time: 14:14 ec2 08/16 13:18 Order name: CXR XRAY; Complete Time: 14:14 ec2 08/16 13:18 Order name: IV; Complete Time: 13:43 ec2 Administered Medications: 13:48 Drug: Ondansetron IVP 4 mg IVP once; over 2 minutes Route: IVP; Site: left wrist; me1 14:17 Follow up: Response: No adverse reaction; Nausea is decreased me1 13:48 Drug: NS 0.9% IV 500 ml 500 ml IV at 1 bolus once; to be given as a bolus over 30 me1 minutes Volume: 500 ml; Route: IV; Rate: 1 bolus; Site: left wrist; 14:39 Follow up: Response: No adverse reaction; IV Status: Completed infusion; IV Intake: me1 500ml 14:39 Drug: Potassium Chloride PO 40 mEq PO once Route: PO; me1 14:39 Follow up: Response: No adverse reaction me1 Disposition Summary: 08/16/24 14:14 Discharge Ordered Notes: Location: Home ec2 Condition: Stable ec2 Diagnosis - Inhalational Injury ec2 - Hypokalemia ec2 Followup: ec2 - With: Private Physician - When: - Reason: Re-evaluation by your physician Discharge Instructions: - Discharge Summary Sheet ec2 - Chemical Inhalation Injury, Adult ec2 Forms: - Medication Reconciliation Form ec2 - Antibiotic Education ec2 - Prescription Opioid Use ec2 - Patient Portal Instructions ec2 - Leadership Thank You Letter ec2 Prescriptions: - Zofran 4 mg Oral Tablet - take 1 tablet ORAL route every 12 hours As needed; 20 tablet; Refills: 0, ec2 Product Selection Permitted Signatures: Dispatcher [employer] Primitivo Webster RN RN ll1 Sabine Martin RN RN me1 Misha Delgado MD MD ec2
[2024-08-16] MEDS ORDERED: POTASSIUM CL SA 10 MEQ TAB PO ONE (14:24)
[2024-08-16 16:53] VITALS: BP 111/75; TEMP 98.5; O2SAT 100
== END 2024-08-16 14:46 | disposition home or self-care (01) ==
LOC: ER 11:49
DX: T65.891A Toxic effect of other specified substances, accidental (unintentional), initial encounter (principal); E87.6 Hypokalemia
CPT/HCPCS: 36415; 71045; 80048; 85025; J2405; J7040